=== PATIENT | female | born 1985 | race Caucasian/White ===

== ENCOUNTER → 2019-01-03 09:00 | Outpatient (POV) | payer OTHER, SELFPAY ==
[2019-01-03 09:14] VITALS: BP 101/61; PULSE 73; RESP 18; O2SAT 98
--- NOTE | 2019-01-03 09:36 | HMH.PMCON ---
Assessment and Plan (1) Postlaminectomy syndrome of lumbar region Current visit: Yes Status: Chronic Category: Medical Code(s): M96.1 - Postlaminectomy syndrome, not elsewhere classified - Assessment and plan all Dx Assessment and Plan for all problems:: Patient has established care with that she can call at any time for an appointment. Patient will sign a release of information for her imaging from Dr. Ramos. Dr. Kumar has reviewed this note and agrees with this plan of care. This note was dictated using voice recognition software and may contain errors or omissions HPI - Data of Consult Consult date: 01/03/19 Requesting Physician: Aracely Saini APRN Primary Care Provider: Emily Becerra APRN - Consult Narrative Reason for consult: Back pain History of present illness: Ms. Olivas is a 33 year old female who presents today to discuss her low back pain. Patient has chronic low back pain with right leg numbness and tingling at times. Patient was seen in [place] by a pain management physician there and received epidural she got relief with that however she did end up having surgery. Since then she has been doing well she rates her pain a 2 out of 10. She would like to just establish care with us today in case she needs injections in the future. CC: Aracely Saini APRN [facility] History I have reviewed the patient's past medical history: Yes Medical History: Denies:: Diabetes Mellitus Type 1, Diabetes Mellitus Type 2 Other Medical History: Reports: Anemia Amputation: No Fractures: No - *Social History Smoking Status: Never smoker Alcohol Intake: never *Occupational Status:: other Housing: house *Travel in the last 8 weeks: None - Psychiatric History Expresses thoughts of harming self/others: None Suicide Plan Description: No Plan Family Hx:: Unable to obtain Review of Systems - Review of Systems ROS General: no recent weight change, no fever, no sleep disturbances Respiratory: no cough, no shortness of air, no recurring pulmonary infections Cardiovascular/Peripheral Vascular: No chest pain, No palpitations, no edema, no shortness of breath. Gastrointestinal: no incontinence, normal bowel movements reported Genitourinary: no incontinence Musculoskeletal: Back pain, leg pain Psychiatric: normal mood/ affect Neurological: [denies weakness in extremities], [denies balance issues] Meds Allergies Allergy/AdvReac Type Severity Reaction Status Date / Time No Known Allergies Allergy Verified 08/02/18 16:50 Objective Vital signs: Pulse Resp BP Pulse Ox 73 18 101/61 L 98 01/03/19 09:14 01/03/19 09:14 01/03/19 09:14 01/03/19 09:14 Narrative: Physical Exam General: Alert and oriented x3, no acute distress, pleasant and cooperative, [on room air] Lungs: Resps E/U, Symmetrical chest expansion, Eyes: PERRL Musculoskeletal: Flexion and extension of lumbar spine somewhat guarded secondary to pain, deep tendon reflexes normal, strength in upper and lower extremities [5/5], slightly antalgic gait noted Neurological: speech clear, 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
--- NOTE | 2019-01-03 09:39 | P.CONS_ITS ---
Assessment and Plan (1) Postlaminectomy syndrome of lumbar region Current visit: Yes Status: Chronic Category: Medical Code(s): M96.1 - Postlaminectomy syndrome, not elsewhere classified - Assessment and plan all Dx Assessment and Plan for all problems:: Patient has established care with that she can call at any time for an appointment. Patient will sign a release of information for her imaging from Dr. Ramos. Dr. Kumar has reviewed this note and agrees with this plan of care. This note was dictated using voice recognition software and may contain errors or omissions HPI - Data of Consult Consult date: 01/03/19 Requesting Physician: Aracely Saini APRN Primary Care Provider: Emily Becerra APRN - Consult Narrative Reason for consult: Back pain History of present illness: Ms. Olivas is a 33 year old female who presents today to discuss her low back pain. Patient has chronic low back pain with right leg numbness and tingling at times. Patient was seen in [place] by a pain management physician there and received epidural she got relief with that however she did end up having surgery. Since then she has been doing well she rates her pain a 2 out of 10. She would like to just establish care with us today in case she needs injections in the future. CC: Aracely Saini APRN [facility] History I have reviewed the patient's past medical history: Yes Medical History: Denies:: Diabetes Mellitus Type 1, Diabetes Mellitus Type 2 Other Medical History: Reports: Anemia Amputation: No Fractures: No - *Social History Smoking Status: Never smoker Alcohol Intake: never *Occupational Status:: other Housing: house *Travel in the last 8 weeks: None - Psychiatric History Expresses thoughts of harming self/others: None Suicide Plan Description: No Plan Family Hx:: Unable to obtain Review of Systems - Review of Systems ROS General: no recent weight change, no fever, no sleep disturbances Respiratory: no cough, no shortness of air, no recurring pulmonary infections Cardiovascular/Peripheral Vascular: No chest pain, No palpitations, no edema, no shortness of breath. Gastrointestinal: no incontinence, normal bowel movements reported Genitourinary: no incontinence Musculoskeletal: Back pain, leg pain Psychiatric: normal mood/ affect Neurological: [denies weakness in extremities], [denies balance issues] Meds Allergies Allergy/AdvReac Type Severity Reaction Status Date / Time No Known Allergies Allergy Verified 08/02/18 16:50 Objective Vital signs: Pulse Resp BP Pulse Ox 73 18 101/61 L 98 01/03/19 09:14 01/03/19 09:14 01/03/19 09:14 01/03/19 09:14 Narrative: Physical Exam General: Alert and oriented x3, no acute distress, pleasant and cooperative, [on room air] Lungs: Resps E/U, Symmetrical chest expansion, Eyes: PERRL Musculoskeletal: Flexion and extension of lumbar spine somewhat guarded secondary to pain, deep tendon reflexes normal, strength in upper and lower extremities [5/5], slightly antalgic gait noted Neurological: speech clear, team physician equal, no gross sensory deficits Opioid Risk Tool - Opioid Risk Tool-Female Family hx alcohol abuse: N Family hx illegal drugs: N Family hx rx drug abuse: N Personal hx alcohol abuse: N Perso
== END ==
PROVIDERS: PCP Nurse Practitioner Family; Visit Provider Clinical Nurse Specialist Family Health
DX: M96.1 Postlaminectomy syndrome, not elsewhere classified (principal)
CPT/HCPCS: 99202

== ENCOUNTER → 2020-06-01 10:28 | Outpatient (CLI) | payer OTHER, SELFPAY ==
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
== END ==
PROVIDERS: PCP Family Medicine; Visit Provider Family Medicine
DX: M25.511 Pain in right shoulder (principal)
CPT/HCPCS: 73030

== ENCOUNTER → 2020-09-02 15:33 | Outpatient (CLI) | payer BC, SELFPAY ==
--- NOTE | 2020-09-02 15:37 | MR_ITS ---
PROCEDURE: MR SHOULDER RT WO CON CLINICAL INDICATION: RIGHT SHOULDER PAIN RT SHOULDER PAIN XYRS. NO RECENT INJURY. COMPARISON: CR XR SHOULDER RT MIN 2V from 06/01/2020 TECHNIQUE: Routine multiplanar multi echo sequences are performed without gadolinium enhancement. FINDINGS: There is mild subacromial stenosis of approximately 4 mm. There is slight increased T2 signal within the supraspinatus tendon at the region of the greatest subacromial stenosis suggesting tendinopathy/tendinosis. There is no evidence rotator cuff tear. Supraspinatus, infraspinatus, subscapularis, and teres minor tendons appear intact. No labral tear evident. The bicipital tendon is in place. Small amount of fluid is present within the bicipital tendon sheath suggesting tendonitis. No fracture or dislocation. Minimal increased T2 signal is present along the posterior aspect of the humeral head. IMPRESSION: 1. No evidence of rotator cuff tear or labral tear. 2. Mild tendinopathy/tendinosis of the supraspinatus tendon with mild subacromial stenosis. 3. Small amount fluid within the bicipital tendon sheath which may be seen with tendinitis. Dictated by: Cristian Loomis MD 09/03/2020 09:14 Cristian Loomis MD in [place] 09/03/2020 09:14
== END ==
PROVIDERS: PCP Nurse Practitioner Family; Visit Provider Nurse Practitioner Family
DX: M25.511 Pain in right shoulder (principal); S46.019A Strain of muscle(s) and tendon(s) of the rotator cuff of unspecified shoulder, initial encounter
CPT/HCPCS: 73221

== ENCOUNTER → 2020-11-27 12:52 | Outpatient (CLI) | payer BC, SELFPAY ==
--- NOTE | 2020-11-27 12:56 | US_ITS ---
PROCEDURE: US TRANSVAGINAL CLINICAL INDICATION: PROLONGED PERIODS COMPARISON: No exams were available for comparison FINDINGS: UTERUS: 10cm x 7cmx 6cm with a combined endometrial thickness of 4.6mm. The uterus has a boggy appearance. LEFT OVARY: [id number] with a volume of 21.4ml. RIGHT OVARY: [id number] with a volume of 3.2ml. There is are 2 areas of decreased echogenicity within the uterus. These are ill-defined 1 in the posterior body at 1 cm and another in the lower body posteriorly at 1.3 cm suggesting small uterine fibroids. There is a 3 cm left follicular cyst. Trace cul-de-sac fluid evident. IMPRESSION: Boggy appearing enlarged uterus with at least 2 small fibroids. Trace amount of fluid in the cul-de-sac Dictated by: Cristian Loomis MD 11/27/2020 18:17 Cristian Loomis MD in [place] 11/27/2020 18:17
== END ==
PROVIDERS: PCP Nurse Practitioner Family; Visit Provider Nurse Practitioner Family
DX: N92.6 Irregular menstruation, unspecified (principal)
CPT/HCPCS: 76830

== ENCOUNTER → 2020-12-23 15:03 | Outpatient (CLI) | payer BC, SELFPAY ==
--- NOTE | 2020-12-23 15:17 | ECG_ITS ---
APPROVED REPORT Exam: Resting ECG HR:73 bpm ECG Measurements Heart Rate 73 AXES MS 116 P 71 QRSd 90 QRS 74 QT 388 T 56 QTc 427 Conclusion Normal sinus rhythm Normal ECG Electronically signed by : Kvng Trujillo, 12/24/2020 15:11:19
--- NOTE | 2020-12-23 16:06 | XR_ITS ---
PROCEDURE: XR LUMBAR SPINE MIN 4V CLINICAL INDICATION: BULGING LUMBAR DISC Pain low back COMPARISON: No exams were available for comparison FINDINGS: No fracture or dislocation. No lytic or blastic change. There is normal mineralization. Mild lumbar scoliosis convex left in the lower lumbar spine. Degenerative disc disease L4-5 Other findings:Mild facet sclerosis on the left at S1 IMPRESSION: Lower lumbar scoliosis convex left with degenerative disc disease at L4-5 Dictated by: Cristian Loomis MD 12/23/2020 16:45 Cristian Loomis MD in [place] 12/23/2020 16:45
[2020-12-23 16:24] LABS: Basophils # 0.1 K/mm3 (0-0.2); Basophils % 1.1 % (0.1-2.0); Eosinophils # 0.2 K/mm3 (0.0-0.4); Eosinophils % 2.3 % (0.1-12.0); Hemoglobin 14.3 g/dL (12.2-16.2); Lymphocytes # 3.4 K/mm3 (0.7-4.5); Lymphocytes % 39.3 % (10-50); Mean Corpuscular HGB Conc 33.2 g/dL (31.8-35.4); Mean Corpuscular Hemoglobin 30.4 pg (27.0-31.2); Mean Corpuscular Volume 91.5 fl (81-99); Mean Platelet Volume 8.1 fl (7.4-10.4); Monocytes # 0.4 K/mm3 (0.1-1.0); Monocytes % 4.4 % (1.7-9.3); Neutrophils # 4.6 K/mm3 (1.8-7.8); Platelet Count 228 K/mm3 (142-424); Red Cell Distribution Width 13.1 % (11.5-17.5); White Blood Count 8.7 K/mm3 (4.8-10.8)
[2020-12-23 17:13] LABS: Alanine Aminotransferase 22 U/L (12-78); Albumin Level 4.7 g/dl (3.5-5.0); Albumin/Globulin Ratio 1.7 (1.1-1.8); Alkaline Phosphatase 54 U/L (38-126); Anion Gap 12.1 mEq/L (5-15); Aspartate Amino Transferase 32 U/L (14-36); Bilirubin,Total 0.3 mg/dl (0.2-1.3); Blood Urea Nitrogen 10 mg/dl (7-17); Calcium 10.1 mg/dl (8.4-10.2); Carbon Dioxide 24 mmol/L (22.0-30.0); Chloride 107 mmol/L (98-107); Estimated Glomerular Filt Rate 81 ml/min (>60); GFR (African American) 98 ML/MIN (>60); Globulin 2.7 g/dL (1.3-3.2); Glucose 87 mg/dl (74-100); Potassium 4.1 mmoL/L (3.5-5.1); Sodium 139 mmol/L (136-145); Total Protein,Serum 7.4 g/dl (6.3-8.2)
[2020-12-23 17:20] LABS: C-Reactive Protein 1.1 mg/L (0-4)
[2020-12-23 17:31] LABS: Free T4 (Free Thyroxine) 1.15 ng/dl (0.78-2.19)
[2020-12-23 17:46] LABS: Thyroid Stimulating Hormone 2.26 uIU/mL (0.465-4.68)
[2020-12-23 22:15] LABS: Ferritin 17.5 ng/ml (6.24-137)
[2020-12-27 12:22] LABS: Antinuclear Antibodies, IFA Positive (.)
== END ==
PROVIDERS: PCP Nurse Practitioner Family; Visit Provider Nurse Practitioner Family
DX: R55 Syncope and collapse (principal); M51.26 Other intervertebral disc displacement, lumbar region; M51.36 Other intervertebral disc degeneration, lumbar region
CPT/HCPCS: 36415; 72110; 80053; 82728; 84439; 84443; 85025; 86038; 86140; 93005

== ENCOUNTER → 2021-01-06 10:40 | Outpatient (POV) | payer BC, SELFPAY ==
[2021-01-06 11:05] VITALS: BP 112/78; PULSE 74; RESP 18; TEMP 36.8; O2SAT 98; BMI 23.0
--- NOTE | 2021-01-06 13:02 | HMH.PMCON ---
Assessment and Plan (1) Degenerative disc disease Status: Acute Category: Medical (2) Lumbar radiculopathy Status: Acute Category: Medical Code(s): M54.16 - Radiculopathy, lumbar region (3) Back pain Status: Acute Category: Medical Code(s): M54.9 - Dorsalgia, unspecified (4) Postlaminectomy syndrome of lumbar region Status: Chronic Category: Medical Code(s): M96.1 - Postlaminectomy syndrome, not elsewhere classified - Assessment and plan all Dx Assessment and Plan for all problems:: We will schedule the patient for an MRI to help determine pathology. I will follow-up with her afterwards reassess her symptoms at that time. We will start her on diclofenac 75 mg 1 p.o. twice daily. She has been instructed to call the office if she has any issues prior to her next appointment. Dr. Kumar has reviewed this note and agrees with this plan of care. This note was dictated using voice recognition software and may contain errors or omissions HPI - Data of Consult Consult date: 01/06/21 Requesting Physician: Aracely Saini APRN Primary Care Provider: Marta Greene APRN - Consult Narrative Reason for consult: Back pain History of present illness: Ms. Olivas is a 35 year old female who presents today for consultation in regards to her low back pain. Patient had surgery back in 2018. She is now having back pain with radiation into her bilateral lower extremities worse on the right side. Patient was seen by pain management several years ago and given a round of epidural steroid injections which were not beneficial to her. Patient has tried and failed physical therapy. Patient has no new diagnostic imaging. Patient has been on multiple medications with no long-term success. She rates her pain today a 4 out of 10. CC: Aracely Saini APRN [facility] History I have reviewed the patient's past medical history: Yes Medical History: Denies:: Cancer, Diabetes Mellitus Type 1, Diabetes Mellitus Type 2, MRSA *Have you ever received a pneumonia vaccine?: Yes *Have you received a flu vaccine this season?: Yes Other Medical History: Reports: Anemia Other Surgeries: Yes: Other Amputation: No Fractures: No - *Social History Smoking Status: Current every day smoker Tobacco Type: cigarettes # Packs/Day (cigarettes): 1 #Yrs smoked (if former smoker): 21 Alcohol Intake: never *Occupational Status:: employed Housing: house Household Members: other *Travel in the last 8 weeks: None Family Hx:: Unable to obtain Review of Systems - Review of Systems ROS General: no recent weight change, no fever, no sleep disturbances Respiratory: no cough, no shortness of air, no recurring pulmonary infections Cardiovascular/Peripheral Vascular: No chest pain, No palpitations, no edema, no shortness of breath. Gastrointestinal: no new onset incontinence, normal bowel movements reported Genitourinary: no new onset incontinence Musculoskeletal: Back pain, leg pain Psychiatric: normal mood/ affect Neurological: [denies new onset weakness in extremities], [denies new onset balance issues] Meds Home Medications Medication Instructions Recorded Confirmed Type norethindrone-e.estradioL-iron 1 cap PO DAILY 01/06/21 01/06/21 History [Gemmily 1 mg-20 Mcg Capsule] Allergies Allergy/AdvReac Type Severity Reaction Status Date / Time No Known Allergies Allergy Verified 11/08/20 13:12 Objective Vital signs: Temp Pulse Resp BP Pulse Ox 98.3 F 74 18 112/78 98 01/06/21 11:05 01/06/21 11:05 01/06/21 11:05 01/06/21 11:05 01/06/21 11:05 Narrative: Physical Exam General: Alert and oriented x3, no acute distress, pleasant and cooperative, [on room air] Lungs: Resps E/U, Symmetrical chest expansion, Eyes: PERRL Musculoskeletal: Flexion and extension of lumbar spine somewhat guarded secondary to pain, deep tendon reflexes normal, strength in upper and lower extremitie
== END ==
PROVIDERS: PCP Nurse Practitioner Family; Visit Provider Clinical Nurse Specialist Family Health
DX: M54.16 Radiculopathy, lumbar region (principal); M54.9 Dorsalgia, unspecified; M96.1 Postlaminectomy syndrome, not elsewhere classified
CPT/HCPCS: 99202; G0463

== ENCOUNTER → 2021-01-14 11:08 | Outpatient (CLI) | payer BC, SELFPAY ==
--- NOTE | 2021-01-14 11:11 | MR_ITS ---
PROCEDURE: MR LUMBAR SPINE WO CON CLINICAL INDICATION: BACK PAIN Hx low back surgery in 2018. Numbness and tingling bilateral legs and feet. No injury or trauma. Prior x-ray 12/23/20. COMPARISON: CR XR LUMBAR SPINE MIN 4V from 12/23/2020 TECHNIQUE: Standard multiplanar multiecho sequences are performed without contrast. 3-D MIP and myelographic images are also rendered and reviewed FINDINGS: There is normal alignment. The spinal cord ends at the L1 level. The L3-L4: Bulging disc with small central disc protrusion which abuts the anterior medial aspect of both L4 nerve roots without displacement. Annular fissure is present at the disc protrusion. L4-5: There is a right-sided laminotomy site. Bulging disc is present eccentric toward the right with a small central disc herniation with minimal inferior extrusion. Bulging disc is impinging upon the right L5 nerve root. The small disc herniation is slightly eccentric toward the left and is causing some impingement upon the left L5 nerve root. Since the patient has had surgery some of these findings could also be related to some degree of epidural fibrosis. Repeat exam without and with contrast suggested for further evaluation of that possibility. There is mild facet and ligamentum hypertrophy at L4-5 with mild bilateral foraminal narrowing L5-S1: Broad-based bulging disc with minimal central disc protrusion. This is causing moderate bilateral lateral recess and foraminal narrowing IMPRESSION: 1. L3-L4: Bulging disc with small central disc protrusion which abuts the anterior medial aspect of both L4 nerve roots without displacement. Annular fissure is present at the disc protrusion. 2. L4-5: There is a right-sided laminotomy site. Bulging disc is present eccentric toward the right with a small central disc herniation with minimal inferior extrusion. Bulging disc is impinging upon the right L5 nerve root. The small disc herniation is slightly eccentric toward the left and is causing some impingement upon the left L5 nerve root. Since the patient has had surgery some of these findings could also be related to some degree of epidural fibrosis. Repeat exam without and with contrast suggested for further evaluation of that possibility. There is mild facet and ligamentum hypertrophy at L4-5 with mild bilateral foraminal narrowing 3. L5-S1: Broad-based bulging disc with minimal central disc protrusion. This is causing moderate bilateral lateral recess and foraminal narrowing Dictated by: Cristian Loomis MD 01/15/2021 12:15 Cristian Loomis MD in [place] 01/15/2021 12:15
== END ==
PROVIDERS: PCP Nurse Practitioner Family; Visit Provider Clinical Nurse Specialist Family Health
DX: M54.5 Low back pain (principal)
CPT/HCPCS: 72148; 76376

== ENCOUNTER → 2021-01-20 11:11 | Outpatient (POV) | payer BC, SELFPAY ==
[2021-01-20 11:19] VITALS: BP 99/52; PULSE 71; RESP 18; O2SAT 98; BMI 23.0
--- NOTE | 2021-01-20 11:23 | HMH.PAINSOAP ---
[facility] Pain Management SOAP Note Subjective:: Patient is a pleasant 35-year-old white female who presents today for follow-up. Patient has low back pain radiating into her left leg. She had back surgery back in 2018. Patient has been seen by pain management in the past and given several rounds of injections with no relief. We discussed in recent MRI which shows a impingement upon both her left and right nerve roots at L4-L5. Patient and I discussed a neurosurgical consultation I do believe that this would be beneficial she also has a herniation in this area. Patient and I discussed also doing an epidural steroid injection in the meantime. Patient is not on any anticoagulation therapy. ROS General: no recent weight change, no fever, no sleep disturbances Respiratory: no cough, no shortness of air, no recurring pulmonary infections Cardiovascular/Peripheral Vascular: No chest pain, No palpitations, no edema, no shortness of breath. Gastrointestinal: no new onset incontinence, normal bowel movements reported Genitourinary: no new onset incontinence Musculoskeletal: Back pain, leg pain Psychiatric: normal mood/ affect Neurological: [denies new onset weakness in extremities], [denies new onset balance issues] Objective:: Physical Exam General: Alert and oriented x3, no acute distress, pleasant and cooperative, [on room air] Lungs: Resps E/U, Symmetrical chest expansion, Eyes: PERRL Musculoskeletal: Flexion and extension of lumbar spine somewhat guarded secondary to pain, deep tendon reflexes normal, strength in upper and lower extremities [5/5], antalgic gait noted Neurological: speech clear, cabin furnishings installer equal, no gross sensory deficits Assessment:: Degenerative disc disease lumbar spine lumbar radiculopathy postlaminectomy syndrome Plan:: We will plan on sending her to Dr. Gambino for consultation. We will also set her up for an L4-L5 lumbar epidural steroid injection. She has been instructed to call the office if she has any issues prior to her next appointment. Dr. Kumar has reviewed this note and agrees with this plan of care. This note was dictated using voice recognition software and may contain errors or omissions [facility] History I have reviewed the patient's past medical history: Yes Medical History: Denies:: Cancer, Diabetes Mellitus Type 1, Diabetes Mellitus Type 2, MRSA *Have you ever received a pneumonia vaccine?: Yes *Have you received a flu vaccine this season?: Yes Other Medical History: Reports: Anemia Other Surgeries: Yes: Other Amputation: No Fractures: No - *Social History Smoking Status: Current every day smoker Tobacco Type: cigarettes # Packs/Day (cigarettes): 1 #Yrs smoked (if former smoker): 21 Alcohol Intake: never *Occupational Status:: other Housing: house Household Members: other *Travel in the last 8 weeks: None Family Hx:: Unable to obtain
== END ==
PROVIDERS: Visit Provider Clinical Nurse Specialist Family Health
DX: M51.16 Intervertebral disc disorders with radiculopathy, lumbar region (principal); M96.1 Postlaminectomy syndrome, not elsewhere classified
CPT/HCPCS: 99212; G0463

== ENCOUNTER 2021-01-31 12:31 | Day surgery (SDC) | payer BC, SELFPAY ==
[2021-01-31 12:32] VITALS: BP 110/63; PULSE 77; RESP 18; TEMP 36.6; O2SAT 99; BMI 23.0
[2021-01-31 12:52] VITALS: BP 111/62; PULSE 63; RESP 20; O2SAT 96
[2021-01-31 12:54] VITALS: BP 111/62; PULSE 78; RESP 18; O2SAT 98
[2021-01-31 13:14] VITALS: BP 99/64; PULSE 72; RESP 18; O2SAT 99
--- NOTE | 2021-01-31 13:24 | P.PCN_ITS ---
- Procedure Date: 01/31/21 Time: 13:25 Anesthesiologist:: Prince Kumar MD Complications:: None Pre-procedure Diagnosis:: Degenerative disc disease of lumbar spine with lumbar radiculopathy symptoms. Postlaminectomy syndrome lumbar spine Post-procedure Diagnosis:: Same Indications for Procedure:: This patient is a pleasant 35-year-old white female who we are treating for low back pain with lumbar radiculopathy symptoms and postlaminectomy syndrome lumbar spine. She has increasing pain in her back radiating down her legs. She is awaiting consultation with Dr. Gambino. She has had previous surgery. We will plan on a repeat lumbar epidural steroid injection today to help with her pain symptoms until she sees Dr. Gambino. Procedure Details:: Informed consent was obtained and the risk and benefits of the procedure was explained to the patient. The patient was taken to the procedure room. The patient was placed prone on the procedure table. The patient was prepped and draped in sterile fashion. C-arm fluoroscopy was used to view the lumbar spine. Skin and subcutaneous tissues were anesthetized using lidocaine. I placed an 18-gauge epidural needle and advanced into the L4-L5 interspace using fluoroscopic guidance and [id number] to air. After confirmation of needle placement in the epidural space with dye I injected 2 mL of lidocaine 1 .5% with Depo-Medrol 80 mg. Patient tolerated the procedure well with no complications. Plan and Disposition:: We will follow-up with her in 2 weeks. Will reevaluate symptoms at that time.
== END 2021-01-31 13:15 | disposition home or self-care (01) ==
LOC: SC.PAINP 12:31
PROVIDERS: PCP Nurse Practitioner Family; Visit Provider Anesthesiology
DX: M51.16 Intervertebral disc disorders with radiculopathy, lumbar region (principal); M96.1 Postlaminectomy syndrome, not elsewhere classified; D64.9 Anemia, unspecified; Z72.0 Tobacco use; Z79.3 Long term (current) use of hormonal contraceptives
CPT/HCPCS: 62323; J1040; Q9966

== ENCOUNTER → 2021-02-27 10:53 | Outpatient (POV) | payer BC, SELFPAY ==
[2021-02-27 11:01] VITALS: BP 102/55; PULSE 77; RESP 18; O2SAT 98; BMI 22.8
--- NOTE | 2021-02-27 12:32 | P.CONS_ITS ---
[facility] Pain Management SOAP Note Subjective:: Patient is a pleasant 35-year-old white female who presents today for follow-up after a lumbar epidural steroid injection. She has been treated for degenerative disc disease lumbar spine with lumbar radiculopathy symptoms and postlaminectomy syndrome lumbar spine. Patient rates her pain a 0 out of 10 at this time. This is the patient's first epidural steroid injection in the clinic. She was previously having paresthesia to her left lower extremity and reports that this has subsided since the injection. She does states she has had around 4-5 lumbar epidural steroid injections in the past with other physicians. She has gotten between 2 to 3 months up to a year of relief with the injections in the past. Her average relief is approximately 1 month. She also has a referral to Dr. Gambino and does plan to see Dr. Gambino in April. Review of Systems General: No recent weight changes, no fever, no sleep disturbances Respiratory: No cough, no shortness of air, no recurring pulmonary infections Cardiovascular/peripheral vascular: No chest pain, no palpitations, no edema, no shortness of breath Gastrointestinal: No new onset incontinence, normal bowel movements reported Genitourinary: No new onset incontinence Musculoskeletal: No pain at this time Psychiatric: Normal mood/affect Neurological: [Denies weakness in extremities], [denies balance issues] Objective:: Physical exam General: Alert and oriented x3, no acute distress, pleasant and cooperative, [on room air] Lungs: Respirations even and unlabored, symmetrical chest expansion Eyes: PERRL Musculoskeletal: Flexion and extension of [] spine nonguarded, deep tendon reflexes normal, strength in upper and lower extremities [5/5], normal gait noted Neurological: Speech clear, heavy line technician equal, no gross sensory deficit Assessment:: Degenerative disc disease lumbar spine with lumbar radiculopathy symptoms, postlaminectomy syndrome lumbar spine Plan:: Patient is doing well since her lumbar epidural steroid injection. Patient averages a month of relief with the injections. Due to this, we discussed seeing her back in the clinic in 1 month for reevaluation of her symptoms. The injection has given her relief to her left leg and her low back pain. She does have an appoint with Dr. Toscano with neurosurgery in April. We will see her back in a month for reevaluation of her symptoms. Patient has been instructed to contact the clinic with any concerns before the next appointment. Dr. Kumar has reviewed this note and agrees with this plan of care. This note was dictated using voice recognition software and make contain errors or omissions. [facility] History I have reviewed the patient's past medical history: Yes Medical History: Denies:: Cancer, Diabetes Mellitus Type 1, Diabetes Mellitus Type 2, MRSA, Seizures *Have you ever received a pneumonia vaccine?: No *Have you received a flu vaccine this season?: No Other Medical History: Reports: Anemia. Denies: Blood Transfusion Reaction Other Surgeries: Yes: Other (2018 compressed nerve release) Amputation: No Fractures: No - *Social History Smoking Status: Current every day smoker Tobacco Type: cigarettes # Packs/Day (cigarettes): 1 #Yrs smoked (if former smoker): 21 Alcohol Intake: never *Occupational Status:: employed Housing: house Household Members: spouse *Travel in the last 8 weeks: None Family Hx:: Unable to obtain
== END ==
PROVIDERS: PCP Nurse Practitioner Family; Visit Provider Clinical Nurse Specialist Family Health
DX: M51.16 Intervertebral disc disorders with radiculopathy, lumbar region (principal); M96.1 Postlaminectomy syndrome, not elsewhere classified
CPT/HCPCS: 99212; G0463

== ENCOUNTER → 2021-03-27 11:06 | Outpatient (POV) | payer BC, SELFPAY ==
[2021-03-27 11:31] VITALS: BP 101/60; PULSE 76; RESP 18; O2SAT 95; BMI 23.0
--- NOTE | 2021-03-27 12:02 | P.CONS_ITS ---
[facility] Pain Management SOAP Note Subjective:: Patient is a 35-year-old white female who presents today for follow-up. She is being treated in our clinic for degenerative disc disease lumbar spine with lumbar radiculopathy symptoms as well as postlaminectomy syndrome lumbar spine. She has had one lumbar epidural steroid injection in our clinic and got significant relief. Her pain is a 0 out of 10 today. She is scheduled to see Dr. Rodriguez on May 19. She says she is doing well at this time and is much more functional. Review of Systems General: No recent weight changes, no fever, no sleep disturbances Respiratory: No cough, no shortness of air, no recurring pulmonary infections Cardiovascular/peripheral vascular: No chest pain, no palpitations, no edema, no shortness of breath Gastrointestinal: No new onset incontinence, normal bowel movements reported Genitourinary: No new onset incontinence Musculoskeletal: Intermittent low back pain Psychiatric: Normal mood/affect Neurological: [Denies weakness in extremities], [denies balance issues] Objective:: Physical exam General: Alert and oriented x3, no acute distress, pleasant and cooperative, [on room air] Lungs: Respirations even and unlabored, symmetrical chest expansion Eyes: PERRL Musculoskeletal: Flexion and extension of [] spine nonguarded, deep tendon reflexes normal, strength in upper and lower extremities [5/5], [abnormal gait noted] Neurological: Speech clear, quality management nurse equal, no gross sensory deficit Assessment:: Degenerative disc disease lumbar spine with lumbar radiculopathy symptoms, postlaminectomy syndrome lumbar spine Plan:: Patient is doing well overall since her injection. She is scheduled to see Dr. Gambino on May 19. She does not want to undergo any injective therapy at this time. We will plan to follow-up with the patient after her visit with Dr. Beavers for reevaluation of symptoms. We will schedule her for 1 month follow-up. Patient has been instructed to contact clinic if she has any concerns before her visit with Dr. Gambino for her follow-up with us. Patient has been instructed to contact the clinic with any concerns before the next appointment. Dr. Kumar has reviewed this note and agrees with this plan of care. This note was dictated using voice recognition software and make contain errors or omissions. [facility] History I have reviewed the patient's past medical history: Yes Medical History: Denies:: Cancer, Diabetes Mellitus Type 1, Diabetes Mellitus Type 2, MRSA, Seizures *Have you ever received a pneumonia vaccine?: No *Have you received a flu vaccine this season?: No Other Medical History: Reports: Anemia. Denies: Blood Transfusion Reaction Other Surgeries: Yes: Other (2018 compressed nerve release) Amputation: No Fractures: No - *Social History Smoking Status: Current every day smoker Tobacco Type: cigarettes # Packs/Day (cigarettes): 1 #Yrs smoked (if former smoker): 21 Alcohol Intake: never *Occupational Status:: employed Housing: house Household Members: spouse *Travel in the last 8 weeks: None Family Hx:: Unable to obtain
== END ==
PROVIDERS: PCP Nurse Practitioner Family; Visit Provider Clinical Nurse Specialist Family Health
DX: M51.16 Intervertebral disc disorders with radiculopathy, lumbar region (principal); M96.1 Postlaminectomy syndrome, not elsewhere classified
CPT/HCPCS: 99212; G0463

== ENCOUNTER → 2021-06-09 07:46 | Outpatient (CLI) | payer BC, SELFPAY | PROVIDERS: Visit Provider Nurse Practitioner Family | DX: R19.7 Diarrhea, unspecified (principal) | CPT/HCPCS: 87045; 87493 ==

== ENCOUNTER → 2021-06-26 11:18 | Outpatient (POV) | payer BC, OTHER, SELFPAY ==
[2021-06-26 11:53] VITALS: BP 99/63; PULSE 76; RESP 18; O2SAT 98; BMI 22.8
--- NOTE | 2021-06-26 13:03 | P.CONS_ITS ---
[facility] Pain Management SOAP Note Subjective:: Patient is a pleasant 35-year-old white female who presents today for follow-up. Patient did undergo a lumbar epidural steroid injection in our clinic in the past for which she got significant relief Patient did follow-up with Dr. Gambino who advised her she was not a surgical candidate at this time. The patient is not having any significant pain. She does report that when she was hiking over a week ago she did have some pain into the right lateral thigh area. She says the pain decreased quickly, however. She has not had return of the pain since that episode. Review of Systems General: No recent weight changes, no fever, no sleep disturbances Respiratory: No cough, no shortness of air, no recurring pulmonary infections Cardiovascular/peripheral vascular: No chest pain, no palpitations, no edema, no shortness of breath Gastrointestinal: No new onset incontinence, normal bowel movements reported Genitourinary: No new onset incontinence Musculoskeletal: Intermittent right thigh pain Psychiatric: [Normal mood/affect] Neurological: [Denies weakness in extremities], [denies balance issues] Objective:: Physical exam General: Alert and oriented x3, no acute distress, pleasant and cooperative, [on room air] Lungs: Respirations even and unlabored, symmetrical chest expansion Eyes: PERRL Musculoskeletal: Flexion and extension of [] [spine nonguarded, [antalgic gait noted] Neurological: Speech clear, no gross sensory deficit Assessment:: Degenerative disc disease lumbar spine with lumbar radiculopathy symptoms Plan:: Patient is a 35-year-old white female who presents today for follow-up after injection. Patient is continuing to do well and is not have any pain at this time. We will order the patient diclofenac 75 mg 1 tablet p.o. twice daily for intermittent pain to her low back and right thigh area. We will follow up with her as needed. She has been instructed to contact clinic if she has any concerns for next appointment. Risks and benefits of the medication have been explained in detail to the patient. If side effects do present with the medication, patient has been advised to stop the medication immediately and call the clinic. The patient has been advised to consult with his/her primary care provider and pharmacist regarding drug-drug interaction of medications currently prescribed. Patient has been instructed to contact the clinic with any concerns before the next appointment. Dr. Kumar has reviewed this note and agrees with this plan of care. This note was dictated using voice recognition software and make contain errors or omissions. [facility] History I have reviewed the patient's past medical history: Yes Medical History: Denies:: Cancer, Diabetes Mellitus Type 1, Diabetes Mellitus Type 2, MRSA, Seizures *Have you ever received a pneumonia vaccine?: No *Have you received a flu vaccine this season?: No Other Medical History: Reports: Anemia. Denies: Blood Transfusion Reaction Other Surgeries: Yes: Other (2018 compressed nerve release) Amputation: No Fractures: No - *Social History Smoking Status: Current every day smoker Tobacco Type: cigarettes # Packs/Day (cigarettes): 1 #Yrs smoked (if former smoker): 21 Alcohol Intake: never *Occupational Status:: employed Housing: house Household Members: spouse *Travel in the last 8 weeks: None Family Hx:: Unable to obtain
== END ==
PROVIDERS: PCP Nurse Practitioner Family; Visit Provider Clinical Nurse Specialist Family Health
DX: M51.16 Intervertebral disc disorders with radiculopathy, lumbar region (principal)
CPT/HCPCS: 99212; G0463

== ENCOUNTER 2021-10-19 19:28 | Emergency (ER) | payer OTHER, SELFPAY ==
[2021-10-19 19:47] VITALS: BP 101/60; PULSE 78; RESP 16; TEMP 36.5; O2SAT 98; BMI 22.3
--- NOTE | 2021-10-19 19:47 | HMH.EDUTC ---
[facility] Disposition Clinical Impression: Exposure to COVID-19 virus Disposition: Home, Self-Care Condition on Discharge: Good Instructions: Preventing the Spread of Coronavirus Discharge Instructions, DI for COVID-19 (Suspected or Confirmed ) Additional Instructions: Drink plenty of fluids. Take tylenol for pain or fever. Return if you begin to have difficulty breathing. Follow up with your regular doctor. GO TO THE ER FOR ANY WORSENING SYMPTOMS Quarantine until you know the results of your covid-19 test. Notify your school or workplace of your results and follow their instructions regarding return to work/school. Referrals: Marta Greene APRN [Primary Care Provider] - Time of Disposition: 20:10 Medical Decision Making - Medical Records Medical records reviewed: No: I reviewed the patient's medical records. - Tomas Inquiry Pt receiving controlled substance: No Vital Signs: 10/19/21 19:47 Temperature 97.7 F Temperature Source Temporal Artery Scan Pulse Rate [Left] 78 Respiratory Rate 16 Blood Pressure [Right Arm] 101/60 L Blood Pressure Mean [Right Arm] 73 02 Sat by Pulse Oximetry 98 [facility] HPI - General Stated complaint: covid test Time Seen by Provider: 10/19/21 19:48 - History of Present Illness Provider Complaint: She may have been exposed to covid-19. She needs to be tested. She denies any symptoms at this time other than she has ear pain due to an ear infection that she is being treated for with antibiotics. - Related Data Home Medications Medication Instructions Recorded Confirmed norethindrone-e.estradioL-iron 1 cap PO DAILY 01/06/21 01/31/21 [Gemmily 1 mg-20 Mcg Capsule] Diclofenac Sodium [Diclofenac 75mg 75 mg PO BID 01/31/21 01/31/21 Tab] Previous Rx's Medication Instructions Recorded Diclofenac Sodium [Diclofenac 75mg 75 mg PO BID #60 tab 06/26/21 Tab] Allergies Allergy/AdvReac Type Severity Reaction Status Date / Time No Known Allergies Allergy Verified 01/31/21 12:51 [facility] History - Hepatitis A Screen Attestation statement:: This patient has been screened for Hepatitis A risk factors. I have reviewed the patient's past medical history: Yes Medical History: Denies:: Cancer, Diabetes Mellitus Type 1, Diabetes Mellitus Type 2, MRSA, Seizures Other Medical History: Reports: Anemia. Denies: Blood Transfusion Reaction Other Surgeries: Yes: Other (2018 compressed nerve release) Amputation: No Fractures: No Comment: back surgery - Social History Smoking Status: Current every day smoker Tobacco Type: cigarettes # Packs/Day (cigarettes): 1 #Yrs smoked (if former smoker): 21 Alcohol Intake: never Occupational Status: employed Housing: house Household Members: spouse Family Hx:: Unable to obtain ROS Obtained: Yes All systems reviewed & no additional complaints - Constitutional Constitutional: Reports system reviewed and no additional complaints, except as docu - Eyes Eyes: Reports system reviewed and no additional complaints, except as docu - ENT Ears, Nose, Mouth, and Throat: Reports system reviewed and no additional complaints, except as docu - Cardiovascular Cardiovascular: Reports system reviewed and no additional complaints, except as docu - Respiratory Respiratory: Reports system reviewed and no additional complaints, except as docu - Gastrointestinal Gastrointestingal: Reports: system reviewed and no additional complaints, except as docu Physical Exam - General General appearance: alert, in no apparent distress - Head Head exam: atraumatic, normocephalic, normal inspection - Eye Eye exam: Present: normal appearance, PERRL, EOMI - ENT ENT exam: Present: normal exam, normal oropharynx, mucous membranes moist, TM's normal bilaterally, normal external ear exam - Neck Neck exam: Present: normal inspection, full ROM, trachea midline. Absent: meningismus, lymphadenopathy - Chest Chest inspect
[2021-10-19 20:13] VITALS: BP 101/60; PULSE 78; RESP 16; TEMP 36.5
== END 2021-10-19 20:14 | disposition home or self-care (01) ==
PROVIDERS: Emergency Provider Nurse Practitioner Family; PCP Nurse Practitioner Family
DX: U07.1 COVID-19 (principal); H66.93 Otitis media, unspecified, bilateral; F17.210 Nicotine dependence, cigarettes, uncomplicated
CPT/HCPCS: 99202; C9803; G0463; U0003; U0005

== ENCOUNTER → 2022-10-02 09:41 | Outpatient (POV) | payer OTHER, SELFPAY ==
--- NOTE | 2022-10-02 10:24 | A.OFFVIS_ITS ---
[facility] Pain Management SOAP Note Subjective:: Patient is a pleasant 36-year-old female who presents today for follow-up. We are currently treating the patient for degenerative disc disease of lumbar spine with lumbar radiculopathy symptoms, postlaminectomy syndrome, right knee pain. Today she rates her pain a 1 out of 10. Patient states she has been experiencing more pain in her right knee with ambulation. Patient denies any new trauma or injury. Patient denies any change to the location or type of pain she experiences. 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 Patient states that this numbness has continually gone up higher onto her right leg. Patient does describe this as an aching, numb sensation that is worse with increased activity. Patient is not on any scheduled medications. Patient states she will occasionally take kdiq-[id number]-[id number] Tylenol or ibuprofen with minimal improvement. Patient denies any topical use. Her Tomas is [id number]. Its been reviewed and appropriate. Review of Systems: General: No recent weight changes, no fever, no sleep disturbances Respiratory: No cough, no shortness of air, no recurring pulmonary infections Cardiovascular/peripheral vascular: No chest pain, no palpitations, no edema, no shortness of breath Gastrointestinal: No new onset incontinence, normal bowel movements reported Genitourinary: No new onset incontinence Musculoskeletal: Right knee pain, right leg numbness Psychiatric: [Normal mood/affect] Neurological: [Denies weakness in extremities], [denies balance issues] Objective:: Physical Exam: General: Alert and oriented x3, no acute distress, pleasant and cooperative Lungs: Respirations even and unlabored, symmetrical chest expansion Eyes: PERRL Musculoskeletal: Flexion and extension of right knee somewhat guarded secondary to pain, [antalgic gait noted] Neurological: Speech clear, no gross sensory deficit ORT score updated with minimal risk Assessment:: Degenerative disc disease of lumbar spine with lumbar radiculopathy symptoms, postlaminectomy syndrome, right knee pain, right leg numbness Plan:: Patient is experiencing worsening pain around her right knee as well as increase numbness and tingling in her right extremity. I will order the patient a compounding cream at today's visit and x-rays of her right knee. I have discussed with the patient that following her x-ray imaging I will plan to order an MRI. Patient will return to clinic following imaging for reevaluation of symptoms and follow-up. Patient has been instructed to contact the clinic with any concerns before the next appointment. Dr. Kumar has reviewed this note and agrees with this plan of care. This note was dictated using voice recognition software and make contain errors or omissions. [facility] Disclaimer: The information contained in this section may have been updated after the patient was seen, as this information can be updated by other users. Social History Smoking Status: Current every day smoker tobacco type: cigarettes packs per day: 1 second hand exposure: No alcohol intake: never current occupational status: employed Travel in the last 8 weeks: None household members: spouse housing: house current occupational exposures/hazards: Yes caffeine: Yes
[2022-10-02 10:33] VITALS: BP 98/69; PULSE 80; RESP 18; O2SAT 98; BMI 21.2
== END ==
PROVIDERS: PCP Nurse Practitioner Family; Visit Provider Nurse Practitioner Family
DX: M51.16 Intervertebral disc disorders with radiculopathy, lumbar region (principal); M96.1 Postlaminectomy syndrome, not elsewhere classified; M25.561 Pain in right knee; R20.0 Anesthesia of skin
CPT/HCPCS: 99212; G0463

== ENCOUNTER → 2022-10-02 10:16 | Outpatient (CLI) | payer OTHER, SELFPAY ==
--- NOTE | 2022-10-02 10:22 | XR_ITS ---
FINAL REPORT CLINICAL HISTORY: LOW BACK PAIN,RT LEG NUMBNESS COMPARISON: 12/23/2020 FINDINGS: LUMBAR SPINE Five views demonstrate no acute fracture. There are mild degenerative changes with osteophytes. There is no malalignment. IMPRESSION: No acute process. Reviewed, Interpreted and Dictated by Don Anguiano III, MD Transcribed by Lili Koroma Authenticated and [facility]
== END ==
LOC: RAD 10:16
PROVIDERS: PCP Nurse Practitioner Family; Visit Provider Nurse Practitioner Family
DX: M54.50 Low back pain, unspecified (principal); R20.0 Anesthesia of skin; M79.604 Pain in right leg
CPT/HCPCS: 72110

== ENCOUNTER 2024-08-01 09:00 | Outpatient (CLI) | payer OTHER, SELFPAY ==
[2024-08-01 14:09] LABS: Microscopic, Urine URINE MICROSCOPIC (MICROSCOPIC)
[2024-08-01 14:45] LABS: Appearance,Urine CLEAR (Clear); Bilirubin,Urine Negative (Negative); Blood, Urine TRACE-I (Negative); Color,Urine YELLOW (Yellow); Glucose,Urine (UA) Negative (Negative); Ketones,Urine Negative (Negative); Leukocyte Esterase,Urine Negative (Negative); Nitrate,Urine Negative (Negative); Protein,Urine Negative (Negative); Specific Gravity, Urine 1.015 (1.005-1.030)
[2024-08-01 15:06] LABS: Bacteria,Urine Trace /lpf; RBC,Urine Occasional #/hpf (0-3); Uric Acid Crystals,Urine 2+ /lpf
== END 2024-08-01 23:59 | disposition home or self-care (01) ==
LOC: LAB.DROPOF 08-02 09:25
PROVIDERS: PCP Nurse Practitioner Family; Visit Provider Nurse Practitioner Family
DX: R39.15 Urgency of urination (principal); R35.0 Frequency of micturition
CPT/HCPCS: 81001; 87086

== ENCOUNTER 2024-08-08 12:23 | Outpatient (CLI) | payer OTHER, SELFPAY ==
[2024-08-08 12:13] LABS: Microscopic, Urine URINE MICROSCOPIC (MICROSCOPIC)
[2024-08-08 12:17] LABS: Appearance,Urine CLEAR (Clear); Bilirubin,Urine Negative (Negative); Blood, Urine TRACE-I (Negative); Color,Urine YELLOW (Yellow); Glucose,Urine (UA) Negative (Negative); Ketones,Urine Negative (Negative); Leukocyte Esterase,Urine Negative (Negative); Nitrate,Urine Negative (Negative); Protein,Urine Negative (Negative); Specific Gravity, Urine <= 1.005 (1.005-1.030); Urobilinogen,Urine 0.2 EU/dl (0.2)
[2024-08-08 12:39] LABS: Bacteria,Urine Trace /lpf; RBC,Urine Occasional #/hpf (0-3); Squamous Epithelial Cell,Urine Occasional #/hpf (0-5)
== END 2024-08-08 23:59 | disposition home or self-care (01) ==
LOC: LAB.DROPOF 12:23
PROVIDERS: PCP Nurse Practitioner Family; Visit Provider Nurse Practitioner Family
DX: R39.15 Urgency of urination (principal); M54.9 Dorsalgia, unspecified
CPT/HCPCS: 81001

== ENCOUNTER 2024-08-14 12:39 | Outpatient (CLI) | payer OTHER, SELFPAY ==
--- NOTE | 2024-08-14 12:40 | US_ITS ---
FINAL REPORT TECHNIQUE: Multiple sonographic images of the kidneys were obtained in the longitudinal and transverse planes. CLINICAL HISTORY: URINARY FREQUENCY--URGENCY COMPARISON: None FINDINGS: The right kidney measures 9.6 cm in weco-rm-hqjq length. There is no hydronephrosis, mass or stone. Cortical echogenicity and cortical thickness are within normal limits. The left kidney measures 11.0 cm in jqxk-ef-lyma length. There is no hydronephrosis, mass or stone. Cortical echogenicity and cortical thickness are within normal limits. IMPRESSION: Morphologically normal kidneys bilaterally. Reviewed, Interpreted and Dictated by Roseline Ramey MD Transcribed by April Davies Authenticated and [facility]
--- NOTE | 2024-08-14 12:40 | US_ITS ---
FINAL REPORT CLINICAL HISTORY: URINARY FREQUENCY ./URGENCY COMPARISON: None FINDINGS: ULTRASOUND BLADDER WITH POST VOID RESIDUAL Bladder volumes were estimated based on 3 dimensional measurements, pre- and postvoid. Prevoid bladder volume: 164 mls Postvoid bladder volume: 5 mls Bilateral ureteral jets are visualized. IMPRESSION: Patient empties to comfort with very small postvoid residual.. Reviewed, Interpreted and Dictated by Roseline Ramey MD Transcribed by April Davies Authenticated and [facility]
== END 2024-08-14 23:59 | disposition home or self-care (01) ==
LOC: RAD 12:40
PROVIDERS: PCP Nurse Practitioner Family; Visit Provider Nurse Practitioner Family
DX: R35.0 Frequency of micturition (principal); R39.15 Urgency of urination
CPT/HCPCS: 76770; 76857

== ENCOUNTER 2025-08-17 15:17 | Outpatient (CLI) | payer OTHER, SELFPAY ==
--- OUTSIDE RECORDS SUMMARY | 2025-08-17 15:20 | XMS_ITS | Clinical Summary ---
[facility] Address [address] [place] [address] Care Team Providers Care Senior Human Resources Representative Name Role Phone Greene Marta NICHOLE Primary Care Provider + [phone] Allergies No known active allergies Medications norgestimate-eth inyl estradiol (Ortho Tri-Cyclen, 28,) 0.18/0.215/0.25 MG-35 MCG per tablet Ortho Tri-Cyclen (28) Active cholecalciferol (VITAMIN D3) 25 MCG (1000 UT) tablet Take 2,000 Units by mouth Daily. 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 She has been euthyroid. I doubt the symptoms of sadness and appetite change are related to the thyroid. She doesn't have goiter on exam. We discussed the diagnosis and autoimmune nature of this. We discussed risk for hypothyroidism in the future. Check TSH again today. Family History Medical History Relation Name Comments No Known Problems Father Heart disease Mother Lung disease Mother Relation Name Status Comments Father Alive Mother Alive Social History Tobacco Use Types Packs/Day Years Used Date Smoking Tobacco: Every Day Cigarettes Smokeless Tobacco: Never Alcohol Use Standard Drinks/Week Comments Yes 0 (1 standard drink = 0.6 oz pur e alcohol) social Abuse Screen Answer Date Recorded Unsafe at Home or Work/School Not on file Feels Threatened by Someone? Not on file Does Anyone Keep You from Co ntacting Others or Doint Things Outside the Home? Not on file 07/02/2023 Physical Sign of Abuse Present Not on file 1 Housing Stability Answer Date Recorded Current Living Arrangements Not on file 06/20 Potentially Unsafe Housing Conditions Not on jenny e 07/02/2023 Family and Community Support Answer Americo e Recorded Help with Day-to-Day Activities Not on file 07/02/2023 Lonely or Isolated Not on file 07/02/2023 Employment Answer Date Recorded Do you want help finding or keeping work or a yesenia b? Not on file 07/02/2023 Disabilities Answer Date Recorded Concentrating, Remembering, or Making Decisions Difficulty Not on file 07/02/2023 Doing Errands Independently Difficulty Not on fi le 07/02/2023 Education Answer Date Recorded Help with school or training? Not on file Preferred Language Not on file 07/02/2023 Comments Unknown Sex and Gender Information Value Date Recorded Sex Assigned at Not on file Legal Sex Female 9:10 AM EDT Gender Identity Not on file Sexual Orientation Not on file Last Filed Vital Signs Vital Sign Reading Time Taken Comments Blood Pressure 100/68 06/10/2021 10:01 AM EDT Pulse 81 06/10/2021 10:01 AM EDT Temperature - - Respiratory Rate - - Oxygen Saturation 98% 06/10/2021 10:01 AM EDT Inhaled Oxygen Concentration - - Weight 59 kg (130 lb) 06/10/2021 10:01 AM EDT Height 162.6 cm (5' 4 ) 06/10/2021 10:01 AM EDT Body Mass Index 22.31 06/10/2021 10:01 AM EDT Plan of Treatment Health Maintenance Due Date Last Done Comments Annual Gynecologic Pelvic an d Breast Exam 1984 TDAP/TD VACCINES (1 - Tdap) 2003 ANNUAL PHYSICAL 04/24/2021 HEPATITIS C SCREENING 04/24/2021 MAMMOGRAM 2024 INFLUENZA VACCINE 04/20/2025 Pneumococcal Vaccine 0-49 Aged Out No longer eligible based on patient's age to complete this topic Insurance [employer] Care Teams Senior Human Resources Representative Relationship Specialty Start Date End Date Marta Greene APRN PCP - General Internal Medicine 03/05/21
[2025-08-17 15:34] LABS: Hematocrit 37.2 % (37.0-47.0); Hemoglobin 12.4 g/dL (12.2-16.2); Immature Granulocytes % 0.1 %; Mean Corpuscular HGB Conc 33.3 g/dL (31.8-35.4); Mean Corpuscular Hemoglobin 28.6 pg (27.0-31.2); Mean Corpuscular Volume 85.7 fl (81-99); Nucleated Red Blood Cells % 0 %; Platelet Count 311 K/mm3 (142-424); Red Blood Count 4.34 M/mm3 (4.20-5.40); Red Cell Distribution Width-SD 42.4 fL; White Blood Count 8.6 K/mm3 (4.8-10.8)
[2025-08-17 15:54] LABS: Albumin Level 4.0 g/dl (3.5-5.0); Chloride 105 mmol/L (98-107); Sodium 138 mmol/L (136-145)
[2025-08-17 15:55] LABS: Potassium 3.9 mmoL/L (3.5-5.1)
[2025-08-17 15:57] LABS: Alanine Aminotransferase 19 U/L (12-78); Albumin/Globulin Ratio 1.4 (1.1-1.8); Alkaline Phosphatase 55 U/L (38-126); Anion Gap 13.9 mEq/L (5-15); Aspartate Amino Transferase 27 U/L (14-36); Bilirubin,Total 0.2 mg/dl (0.2-1.3); Blood Urea Nitrogen 7 mg/dl (7-17); Carbon Dioxide 23 mmol/L (22.0-30.0); Cholesterol 188 mg/dl (140-200); Creatinine,Serum 0.80 mg/dl (0.52-1.04); Estimated Glomerular Filt Rate 79 ml/min (>60); GFR (African American) 96 ML/MIN (>60); Globulin 2.9 g/dL (1.3-3.2); Total Protein,Serum 6.9 g/dl (6.3-8.2); Triglycerides 148 mg/dl (30-150)
[2025-08-17 15:58] LABS: Calcium 9.5 mg/dl (8.4-10.2); Glucose 102 mg/dl (74-100)
[2025-08-17 16:15] LABS: Free T4 (Free Thyroxine) 0.98 ng/dl (0.78-2.19)
[2025-08-17 16:30] LABS: Thyroid Stimulating Hormone 1.42 uIU/mL (0.465-4.68)
[2025-08-17 16:33] LABS: HDL Cholesterol 48 mg/dl (40-60)
[2025-08-26 18:21] LABS: 1,25 Dihydroxy Vitamin D 66 pg/mL (.); 1,25-Dihydroxy, Vitamin D-2 <10 pg/mL (.); 1,25-Dihydroxy, Vitamin D-3 64 pg/mL (.)
== END 2025-08-17 23:59 | disposition home or self-care (01) ==
LOC: LAB 15:18
PROVIDERS: PCP Nurse Practitioner Family; Visit Provider Nurse Practitioner Acute Care
DX: F41.1 Generalized anxiety disorder (principal); F51.04 Psychophysiologic insomnia; R53.83 Other fatigue; R63.4 Abnormal weight loss
CPT/HCPCS: 36415; 80053; 80061; 82652; 84439; 84443; 85025